=== PATIENT | female | born 1995 | race Two or more races ===

== ENCOUNTER 2016-07-01 03:14 | Emergency (ER) | payer OTHER ==
[2016-07-01 03:39] VITALS: BP 111/56
--- NOTE | 2016-07-01 04:21 | ED ---
Omid Armstrong Matthew, scribed for Mook Ignacio MD on 07/01/16 at 0412 . HPI Chest Pain - HPI Summary HPI Summary: A 20 y/o female to the ED with left sided rib pain since 2:20 this morning. The pain is rated 8/10 in severity. The patient states that she went to use her inhaler when she felt something "twist in her chest" and had an immediate shooting pain on the left side of her ribs. Associated symptoms at that time included chills and diaphoresis. She was seen at [facility] last week, where she was Dx with rib strain from coughing. She was prescribed an inhaler at that time. She hasn't taken any pain medications [employer]. The patient's chest pain worsens with deep breaths. - History of Current Complaint Chief Complaint: EDChestWallPain Time Seen by Provider: 07/01/16 03:37 Hx Obtained From: Patient Onset/Duration: Started Hours Ago, Atraumatic, Still Present Time of Onset: 02:20 Initial Severity: Moderate Current Severity: Moderate Pain Intensity: 8 Pain Scale Used: 0-10 Numeric Chest Pain Location: Left Lateral - left ribs Chest Pain Radiates: No Character: Sharp/Stabbing Aggravating Factor(s): Deep Breaths Associated Signs and Symptoms: Positive: Chills, Diaphoresis, Other: - left rib pain - Allergy/Home Medications Allergies/Adverse Reactions: Allergies Allergy/AdvReac Type Severity Reaction Status Date / Time No Known Allergies Allergy Verified 07/01/16 03:40 Home Medications: Home Medications NK [No Home Medications Reported] 07/01/16 [History Confirmed 07/01/16] PMH/Surg Hx/FS Hx/Imm Hx Endocrine/Hematology History: Denies: Hx Diabetes Respiratory History: Reports: Hx Asthma Infectious Disease History: Denies: Traveled Outside the [place] in Last 30 Days - Family History Known Family History: Negative: Hypertension, Diabetes - Social History Occupation: Student Alcohol Use: Occasionally Hx Substance Use: No Substance Use Type: Reports: None Hx Tobacco Use: No Smoking Status (MU): Never Smoked Tobacco Review of Systems Positive: Chills, Skin Diaphoresis Eyes: Negative ENT: Negative Positive: Chest Pain - left sided rib pain Respiratory: Negative Gastrointestinal: Negative Genitourinary: Negative Musculoskeletal: Negative Skin: Negative Neurological: Negative Psychological: Normal All Other Systems Reviewed And Are Negative: Yes Physical Exam Vital Signs On Initial Exam: Initial Vitals Temp Pulse Resp BP Pulse Ox 98.4 F 72 18 112/59 100 07/01/16 03:18 07/01/16 03:18 07/01/16 03:18 07/01/16 03:18 07/01/16 03:18 Diagnostics - Vital Signs Vital Signs Temp Pulse Resp BP Pulse Ox 07/01/16 03:18 98.4 F 72 18 112/59 100 - Laboratory Lab Statement: Any lab studies that have been ordered have been reviewed, and results considered in the medical decision making process. - Radiology Ribs w/Chest XR Xray Interpretation: No Acute Changes Radiology Interpretation Completed By: ED Physician Discharge - Discharge Plan Condition: Stable Disposition: HOME Patient Education Materials: Rib Contusion (ED) [facility] - [facility] Days Additional Instructions: Please follow-up with [facility] in 4 days. The documentation as recorded by the Omid boogie Matthew accurately reflects the service I personally performed and the decisions made by , Mook Ignacio MD.
--- NOTE | 2016-07-01 07:41 | RAD ---
INDICATION: Coughing. Bilateral rib pain. COMPARISON: None TECHNIQUE: Multiple views of the ribs were obtained. FINDINGS: Bones: There is no evidence of acute rib fracture. LUNGS: The lungs are clear. There is no pneumothorax. Pleural spaces: There is no evidence of hemothorax. Other: None IMPRESSION: NEGATIVE EXAMINATION.
== END 2016-07-01 04:58 | disposition home or self-care (01) ==
LOC: ED 03:14
DX: R07.81 Pleurodynia (principal)
CPT/HCPCS: 99281